=== PATIENT | female | born 1940 | race Caucasian/White ===

== ENCOUNTER → 2017-05-15 | Outpatient (CLI) | payer MEDICARE, OTHER ==
[~2017-05-15] MED LIST: ASPIRIN 81MG TA81 MG PO; GLUCOSAMINE & C1 CA1 PO; MELOXICAM15 MG PO; SIMVASTATIN10 MG PO; ZIAC 5 MG-6.251 TAB PO
[2017-05-15 14:53] LABS: BUN 22 mg/dL (7-18)
[2017-05-15 14:54] LABS: GFR (ESTIMATED) 54 ML/MIN (59-)
== END ==
LOC: LAB 13:34
PROVIDERS: Nurse Practitioner Family
DX: R91.1 Solitary pulmonary nodule (principal)

== ENCOUNTER → 2017-10-26 | Outpatient (CLI) | payer MEDICARE, OTHER ==
--- NOTE | 2017-10-30 07:38 | RADIOLOGY REPORT PS360 ---
CT CHEST W/O CONTRAST HISTORY: ABNORMAL CXR, LUNG NODULE ORDERING PHYSICIAN: SHANTE RESENDEZ PATIENT AGE: 77 years TECHNIQUE: Helical acquisition obtainedwithout contrast. Axial, sagittal, and coronal reformatted images are generated and reviewed. COMPARISON: 05/17/2017 FINDINGS: Scattered small lymph nodes are once again noted within the mediastinum. The largest zelalem area is in the precarinal region measuring approximately 2.4 x 1.4 cm not significant change. No obvious hilar adenopathy. There are calcified nodes in mediastinum as well. Normal heart size without evidence of pericardial effusion. There are scattered calcified pulmonary nodules. Mild centrilobular emphysematous change with COPD There are scattered noncalcified pulmonary nodules as well. The largest nodule is in the left upper lobe and measures 16 x 10 mm. Nodule may be very slightly more bulky when compared to the previous exam more noticeable on the coronal and sagittal reformatted images is nodule has increased in size since 07/06/2015. This is suspicious for neoplasm. The margins are somewhat spiculated also better demonstrated on the reformatted images. There is an area of consolidation along the major fissure on the left superiorly slightly more prominent as well and a somewhat nodular appearance along its anterior inferior margin. The nodular areas adjacent to a calcified granuloma. Upper abdominal images are unremarkable. No acute bony anomalies are evident. IMPRESSION: 1. There is a 16 x 10 mm left upper lobe nodule. This appears very slightly more prominent when compared to the previous exam. The margins have a somewhat spiculated appearance. This is suspicious for neoplasm. There is mild mediastinal adenopathy not significantly changed 2. Mild centrilobular emphysematous change with obstructive chronic bronchitis and old granulomatous disease 3. Consolidation of the superior segment of the left upper lobe adjacent to the major fissure. This has a somewhat nodular contour along the inferior margin. While this may limit be postinflammatory/infectious in nature, one cannot exclude underlying neoplasm. Consider PET/CT for further evaluation if not already performed.
== END ==
LOC: RAD 12:48
DX: R91.8 Other nonspecific abnormal finding of lung field (principal)